=== PATIENT | female | born 1980 | race Caucasian/White ===

== ENCOUNTER 2017-01-06 08:00 | Inpatient (IN) | payer OTHER ==
[2017-01-06 08:50] VITALS: BMI 32.5
[2017-01-06] MEDS ORDERED: CITRIC ACID/SODIUM CITRATE 30 ML UNIT-DOSE CUP PO ONE (09:00)
[2017-01-06] MEDS ORDERED: ELECTROLYTE-148 SOLN 1,000 ML IV ONE (09:00)
[2017-01-06] MEDS ORDERED: morphine SULFATE/Preservative Free 0.5 MG/ML (1cc Syringe) SPIN ONE (09:14)
--- NOTE | 2017-01-06 09:16 | HP ---
Past Medical History - Admission Chief Complaint: scheduled CD History of Present Illness: 36 yo @ 39 2/7 wks by LMP consistent with first trimester ultrasound, EDC 01/11/2017 complicated by: 1. Factor V Leiden heterozygous mutation - denies family history or personal history of VTE - plan for lovenox 40 mg subQ q daily 8-12 H after delivery and to continue 6 wks 2. Prior CD 3. Prior delivery at 36 wks for HELLP syndrome No signs of PEC/HELLP this Patient presents for scheduled CD. She denies any contractions, leakage of fluid or vaginal bleeding, she reports movement Limitations to Obtaining History: No Limitations - Past Medical History Cardiovascular: No: HTN Pulmonary: No: Asthma ...: 4 ...Para: 1 ...Term: 0 ...: 1 ...Spon : 2 ...Induced : 0 ...Multiple Gestation: 0 ...LMP: 04/03/16 ... Weeks Gestation by Dates: 39.5 ...EDC by Dates: 01/08/17 ...EDC by Sono: 01/11/17 Heme/Onc: No: Anemia - Past Surgical History Past Surgical History: Yes: Hx Myomectomy: No Hx Transabdominal Cerclage: No - Smoking History Smoking history: Never smoked Have you smoked in the past 12 months: No - Alcohol/Substance Use Hx Alcohol Use: No - Social History History of Recent Travel: No Home Medications - Allergies Allergies/Adverse Reactions: Allergies Allergy/AdvReac Type Severity Reaction Status Date / Time No Known Drug Allergies Allergy Verified 01/06/17 09:57 - Home Medications Home Medications: Ambulatory Orders Pnv95/Iron Fum/Folic Acid [ Caplet] 1 each PO DAILY 01/14/16 Family Disease History - Family Disease History Family History: Denies Review of Systems - Review of Systems Constitutional: reports: No Symptoms Neck: reports: No Symptoms Cardiovascular: reports: No Symptoms Respiratory: reports: No Symptoms Genitourinary: reports: No Symptoms Musculoskeletal: reports: No Symptoms Integumentary: reports: No Symptoms Neurological: reports: No Symptoms Endocrine: reports: No Symptoms Hematology/Lymphatic: reports: No Symptoms Physical Exam - Maternity Vital Signs: Vital Signs Temperature 98.1 F 01/06/17 08:00 Pulse Rate 91 H 01/06/17 08:00 Respiratory Rate 20 01/06/17 08:00 Blood Pressure 130/69 01/06/17 08:00 O2 Sat by Pulse Oximetry (%) Constitutional: Yes: Well Nourished, No Distress, Calm Neck: Yes: Supple Cardiovascular: Yes: Regular Rate and Rhythm Lungs: Clear to auscultation - Abdominal Exam/OB Fundal Height: 40 Number of Fetuses: Single Contractions: No Heart Rate (range): 130 Category: I Accelerations: Non-Uniform Decelerations: None - Physical Exam Edema: No Psychiatric: Yes: Alert, Oriented - Labs Lab Results: PNL - A positive, antibody negative, RPR NR, HBS Ag negative, Rubella negative, GBS negative, HIV negative Hemorrhage Risk Assessment - Risk Factors Medium Risk Factors: Yes: Prior , uterine surgery,or multiple laparotomies High Risk Factors: Yes: Known coagulopathy Risk Score: 3 Risk Level: High Risk Assessment/Plan 36 yo for repeat delivery 1. Admit to L&D 2. Consents reviewed and signed Discussed risks including but not limited to infection, bleeding requiring transfusion and damage to surrounding organs such as the bowel or bladder. Discussed risk of injury to . Discussed risk of wound infection and separation. Discussed need for planning of future children and possibility of abnormal placentation. 3. Ancef traffic control technician to OR 4. Known MTHFR heterozygous mutation. Plan for lovenox 8-12 wks and to continue for 6 weeks 5. Will proceed to OR
[2017-01-06] MEDS: ELECTROLYTE-148 SOLN 1,000 ML IV SCH (09:41)
[2017-01-06] MEDS ORDERED: TUBERCULIN PPD 5 TU/0.1ML SYRINGE (IN PATIENT USE ONLY) ID ONE (10:00)
[2017-01-06] MEDS ORDERED: ONDANSETRON 4 MG/2 ML VIAL IVPB PRN (10:04)
--- NOTE | 2017-01-06 10:28 | PN ---
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
[2017-01-06] MEDS ORDERED: METHYLERGONOVINE MALEATE 0.2 MG/1 ML AMP IM PRN (10:29)
[2017-01-06] MEDS ORDERED: IBUPROFEN 600 MG TABLET (FP) PO PRN (10:29)
[2017-01-06] MEDS ORDERED: oxyCODONE HCL 5 MG TABLET PO PRN ×2 (10:29)
[2017-01-06] MEDS ORDERED: IBUPROFEN 800 MG/8 ML IJ IVPB PRN (10:29)
[2017-01-06] MEDS: OXYTOCIN 20 UNITS in 0.9% NS 1,000 ML IV SCH (10:58)
--- NOTE | 2017-01-07 01:04 | PN ---
Post Progress Note - Subjective Subjective: Patient without acute complaints. Reports tolerating oral intake without nausea or vomiting. Ambulating without dizziness. Denies fevers or chills. Pain well controlled with oral pain medication. without difficulty. Passing flatus, voiding. Post Day: 1 Type of Delivery: Repeat C/S Vital Signs: Vital Signs Temperature 98.6 F 01/06/17 21:40 Pulse Rate 79 01/06/17 21:40 Respiratory Rate 20 01/06/17 21:40 Blood Pressure 116/66 01/06/17 21:40 O2 Sat by Pulse Oximetry (%) 100 01/06/17 11:14 Breast Exam: Yes: Engorged Uterus: Yes: Fundus Firm Incision: Yes: Dressing dry and intact Abdomen/GI: Yes: Abdomen soft, Tender (incisional) Lochia: Yes: Serosa Lochia, amount: Small Extremities: Yes: Edema Activity: Ambulating Assessment/Plan 36 yo s/p repeat CD, afebrile, vital signs stable, doing well 1. Continue routine postoperative care. 2. CBC stable. 3. Rh positive status, no rhogam indicated. 4. Encourage ambulation and incentive spirometer use 5. Continue oral pain medication 6. Anticipate discharge home postoperative day #3 or #4
[2017-01-07] MEDS: IBUPROFEN 600 MG TABLET (FP) PO PRN ×4 (02:46→21:10)
[2017-01-07] MEDS: ACETAMINOPHEN 325 MG TABLET (FP) PO PRN ×4 (02:46→21:10)
--- NOTE | 2017-01-07 08:08 | OP ---
DATE OF OPERATION: 01/06/2017 ATTENDING PHYSICIAN RESPONSIBLE FOR SIGNING REPORT: Bettina Farmer MD PREOPERATIVE DIAGNOSIS: Intrauterine at 39 weeks, prior delivery, for repeat. POSTOPERATIVE DIAGNOSIS: Intrauterine at 39 weeks, prior delivery, for repeat. SURGEON: Bettina Farmer MD ASSIST: Sergei Hernandez MD ANESTHESIA: Spinal with Rik Garcia MD. ESTIMATED BLOOD LOSS: 600 URINE OUTPUT: 100 INTRAVENOUS FLUIDS: 1000 FINDINGS: Female infant, ROT position, Apgars 9 and 9, weight 7 pounds 13 ounces, 19 inches. Normal tubes and ovaries bilaterally. INDICATIONS: Patient is a 36-year-old 4, para 1 with prior at 36 weeks for HELLP syndrome, for repeat without any symptoms or signs of HELLP syndrome or preeclampsia. She was counseled regarding risks, benefits, alternatives, and complications of procedure including infection; bleeding; damage to surrounding organs such as bowel, bladder, ureters; and injury to . She expressed understanding, was brought to the operating room. DESCRIPTION OF PROCEDURE: When anesthesia was found to be adequate, patient was prepped and draped in the normal sterile fashion, placed in dorsal supine position with a leftward tilt. An approximately 11-cm skin incision was made along the previous uterine scar and carried down to the underlying rectus muscle using the Bovie electrocautery. The fascia was nicked in the midline, extended laterally using Bovie electrocautery. The inferior portion of the incision was tented up using Maribel clamps and the fascia was dissected off the underlying rectus muscle using Hines clamps. Attention was brought to the superior portion where, in a similar fashion, was tented up using Maribel clamps and dissected off the underlying rectus muscles using Hines scissors. The rectus muscles were in the midline. The peritoneum was entered sharply, and the peritoneal incision was extended superoinferiorly using the Metzenbaum scissors. Vesicouterine peritoneum was identified, entered sharply. Bladder flap was created digitally. The hysterotomy was performed and extended laterally using bandage scissors. Infant 's head was brought to the hysterotomy site, followed by shoulders and body without difficulty. The infant's cord was clamped and cut. Infant was handed to waiting nursery staff. Placenta was removed, and the uterus was cleared of all clot and debris. The uterus closed using 0 Biosyn with a double layer. Second layer was an imbricated layer. Vesicouterine peritoneum was reapproximated using 0 Biosyn in a running fashion. The peritoneum was closed using 2-0 Biosyn in running fashion. The fascia was closed using 0 Vicryl in a running fashion. The skin was reapproximated using 3-0 Vicryl. Patient tolerated the procedure well. Estimated blood loss was 600 mL. Patient was brought to recovery room in stable condition. Kimberlyn [id number] MTDD
[2017-01-07 08:16] LABS: BASOPHIL 0.4 % (0-2.0); EOSINOPHIL 1.1 % (0-4.5); MCH 24.5 pg (25.7-33.7); MCHC 31.7 g/dl (32.0-36.0); MEAN CELL VOLUME 77.3 fl (80-96); MEAN PLT VOLUME 8.7 fl (7.5-11.1); NEUTROPHILS 76.6 % (42.8-82.8); PLATELET COUNT 184 K/MM3 (134-434); RDW 15.3 % (11.6-15.6); WHITE BLOOD COUNT 11.2 K/mm3 (4.0-10.0)
[2017-01-07] MEDS: ENOXAPARIN NA (PORCINE) 40 MG/0.4 ML DISP.SYRIN SQ SCH (10:15)
[2017-01-07] MEDS: SIMETHICONE 80 MG TAB.CHEW (FP) PO PRN (10:19)
[2017-01-07] MEDS ORDERED: BISACODYL 10 MG SUPP.RECT RC PRN (10:29)
--- NOTE | 2017-01-07 10:54 | PN ---
Progress Note (short form) - Note Progress Note: Post op day#1.S/P C section under spinal anesthesia with duramorph uneventful.Patient stable ane c/o pain score of 2-3/10 for which she is on medication.No any anesthesia related problem.Patient DC from the anesthesia care.
[2017-01-07] MEDS: ELECTROLYTE-148 SOLN 1,000 ML IV SCH (11:21)
[2017-01-07] MEDS: OXYTOCIN 20 UNITS in 0.9% NS 1,000 ML IV SCH (11:22)
[2017-01-07] MEDS ORDERED: ENOXAPARIN NA (PORCINE) 40 MG/0.4 ML DISP.SYRIN SQ SCH (22:00)
[2017-01-08] MEDS: SIMETHICONE 80 MG TAB.CHEW (FP) PO PRN (01:27)
[2017-01-08] MEDS: ACETAMINOPHEN 325 MG TABLET (FP) PO PRN ×3 (01:28→10:30)
[2017-01-08] MEDS: IBUPROFEN 600 MG TABLET (FP) PO PRN ×3 (01:28→10:29)
--- NOTE | 2017-01-08 08:04 | PN ---
Progress Note (short form) - Note Progress Note: pod 2 doing well, no c/o requesting to go home today, no calf pain ,no SOB, passing gas , tolerating diet CBC, BMP 01/07/17 07:25 Last Vital Signs Temp Pulse Resp BP Pulse Ox 97.7 F 87 18 127/86 100 01/07/17 22:00 01/07/17 22:00 01/07/17 22:00 01/07/17 22:00 01/06/17 11:14 abdomen soft, no distension, no cva, BS present incision dry, clean lochia mild no calf tenderness plan d/c home. on lovnox ambulate follow up office 1 week
--- NOTE | 2017-01-08 08:06 | DS ---
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 Vital Signs: Vital Signs Temperature 97.7 F 01/07/17 22:00 Pulse Rate 87 01/07/17 22:00 Respiratory Rate 18 01/07/17 22:00 Blood Pressure 127/86 01/07/17 22:00 O2 Sat by Pulse Oximetry (%) 100 01/06/17 11:14 Constitutional: Yes: Well Nourished, No Distress, Calm Eyes: Yes: WNL, Conjunctiva Clear, EOM Intact HENT: Yes: WNL, Atraumatic, Normocephalic Neck: Yes: WNL, Supple, Trachea Midline Cardiovascular: Yes: WNL, Regular Rate and Rhythm Respiratory: Yes: WNL, Regular, CTA Bilaterally Gastrointestinal: Yes: WNL ...Rectal Exam: Yes: WNL Renal/: Yes: WNL ....Post : Yes: Uterus firm, Uterus non-tender, Slight lochia rubra Breast(s): Yes: WNL Musculoskeletal: Yes: WNL Extremities: Yes: WNL Edema: No Integumentary: Yes: WNL Wound/Incision: Yes: Clean/Dry, Well Approximated, Sutures Intact Neurological: Yes: WNL, Alert, Oriented ...Motor Strength: WNL Psychiatric: Yes: WNL, Alert, Oriented Labs: CBC, BMP 01/07/17 07:25 Delivery - Delivery Section: Repeat Type of Anesthesia: Spinal EBL (cc): 600 Delivery, Single - Stages of Labor Date of Delivery: 01/06/17 Time of Delivery: 09:32 Time Placenta Delivered: 09:33 Placenta: Yes: Expressed - 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 of Metal Precision 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 Present: Yes Name: Mouna Felton Infant Gender: Female Weight: 7 lb 13 oz Position: Right, OT Total Hours ROM (Hrs/Mins): 2 MINUTES - 1 Minute Total Score: 9 5 Minutes Total Score: 9 - [place] Feeding Plan Initial Plan: Exclusive throughout hospitalization Discharge Summary Reason For Visit: REPEAT C SECTION Current Active Problems delivery delivered (Acute) Factor V Leiden mutation (Acute) Procedures: Principal: repeat LST c/s Condition: Good - Instructions Diet, Activity, Other Instructions: regular diet, follow up office 1 week Referrals: Sergei Hernandez MD [Staff Physician] - Disposition: HOME - Home Medications Comprehensive Discharge Medication List: Ambulatory Orders Pnv95/Iron Fum/Folic Acid [ Caplet] 1 each PO DAILY 01/14/16 Enoxaparin [Lovenox -] 40 mg SQ DAILY #80 syringe 01/06/17 Ibuprofen [Motrin -] 600 mg PO QID #28 tablet 01/07/17
[2017-01-08] MEDS ORDERED: PRENATAL VITAMINS W/ FOLIC ACID TABLET (FP) PO SCH (10:00)
[2017-01-08 10:18] VITALS: BP 129/81; PULSE 73; TEMP 97.4
[2017-01-08] MEDS: ENOXAPARIN NA (PORCINE) 40 MG/0.4 ML DISP.SYRIN SQ SCH (10:29)
--- NOTE | 2017-01-11 15:04 | PATH ---
Surgical Pathology Report Patient Name: MIKAL MCNALLY Med. Rec. 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 Electronically Signed Jose M Mckoy M.D. Gross Description The specimen is received fresh, labeled "placenta" and is a 511 gram, 23.0 x 21.0 x 1.6 cm placenta with attached membranes and umbilical cord. The attached membranes are bocanegra, translucent with focal opacities and insert marginally. The umbilical cord measures 39 cm in length and averages 0.9 cm in diameter. The cord inserts eccentrically, 5.5 cm. to the nearest margin. No true knots or strictures are identified. Cut surface of the umbilical cord reveals 3 vessels. The surface is west-blue with fibrin deposition and appropriate caliber vessels. The maternal surface is red-brown with focal defects. Sectioning reveals red-brown, spongy parenchyma. No focal lesions are identified. Resident Caregiver sections are submitted in three cassettes as follows: 1- membrane rolls and umbilical cord; 2-3- full thickness sections of placenta. 01/08/2017 [facility]01/08/2017
== END 2017-01-08 13:45 | disposition home or self-care (01) | DRG 765 ==
LOC: JLDR 08:00 → J3W 11:43
PROVIDERS: ADMIT Obstetrics & Gynecology; ATTEND Obstetrics & Gynecology
PROC: 10D00Z1 Extraction of Products of Conception, Low, Open Approach (ICD-10-PCS; principal; 2017-01-06)
DX: O34.211 Maternal care for low transverse scar from previous cesarean delivery (principal); O99.113 Other diseases of the blood and blood-forming organs and certain disorders involving the immune mechanism complicating pregnancy, third trimester; D68.51 Activated protein C resistance; N85.8 Other specified noninflammatory disorders of uterus; Z3A.39 39 weeks gestation of pregnancy; O09.523 Supervision of elderly multigravida, third trimester; Z37.0 Single live birth
CPT/HCPCS: 36415; 85025; 88307-TC

== ENCOUNTER 2019-04-17 07:00 | Inpatient (IN) | payer OTHER ==
[2019-04-17] MEDS ORDERED: ONDANSETRON 4 MG/2 ML VIAL IVPUSH PRN (07:46)
[2019-04-17] MEDS ORDERED: CITRIC ACID/SODIUM CITRATE 30 ML UNIT-DOSE CUP PO ONE (08:30)
[2019-04-17] MEDS ORDERED: ELECTROLYTE-148 SOLN 1,000 ML IV ONE (08:30)
[2019-04-17] MEDS ORDERED: ELECTROLYTE-148 SOLN 1,000 ML IV SCH ×2 (08:30→09:00)
[2019-04-17 08:40] VITALS: BMI 36.0
[2019-04-17] MEDS ORDERED: ePHEDrine SULFATE 50 MG/1 ML AMPULE ONE (08:48)
[2019-04-17] MEDS ORDERED: morphine SULFATE/PF 0.5 MG/ML (2cc Syringe - QUVA) ONE (08:48)
[2019-04-17] MEDS ORDERED: PROPOFOL 20 ML ONE (08:49)
[2019-04-17] MEDS ORDERED: ELECTROLYTE-148 SOLN 500 ML IV ONE (08:52)
[2019-04-17] MEDS ORDERED: OXYTOCIN 10 UNITS/ML VIAL ONE (08:53)
--- NOTE | 2019-04-17 08:58 | HP ---
Past Medical History - Admission History of Present Illness: 38 yo @ 39 3/7 wks by first trimester ultrasound, EDC 04/21/2019 complicated by: 1. Prior CD x 2 2. HELLP in first , induced at 36 wks Normal BPs this 3. Factor V Leiden - no history of VTE No thromboprophylaxis this 4. AMA - reassuring cell free DNA (10/13/2018) Patient presents for routine schedule delivery. She reports movement, denies leakage of fluid, vaginal bleeding or contractions. History Source: Patient Limitations to Obtaining History: No Limitations - Past Medical History Cardiovascular: No: HTN Pulmonary: No: Asthma ...: 5 ...Para: 2 ...Term: 1 ...: 1 ...Spon : 2 ...Induced : 0 ...LMP: 07/10/18 ... Weeks Gestation by Dates: 40.1 ...EDC by Dates: 04/16/19 Heme/Onc: No: Anemia Additional Medical History: Factor V Leiden - Past Surgical History Past Surgical History: Yes: Hx Myomectomy: No Hx Transabdominal Cerclage: No - Smoking History Smoking history: Never smoked Have you smoked in the past 12 months: No - Alcohol/Substance Use Hx Alcohol Use: No History of Substance Use: reports: None - Social History History of Recent Travel: No Home Medications - Allergies Allergies/Adverse Reactions: Allergies Allergy/AdvReac Type Severity Reaction Status Date / Time No Known Drug Allergies Allergy Verified 01/06/17 09:57 - Home Medications Home Medications: Ambulatory Orders Pnv95/Iron Fum/Folic Acid [ Caplet] 1 each PO DAILY 01/14/16 Family Medical History Family History: Denies Review of Systems - Review of Systems Constitutional: reports: No Symptoms Cardiovascular: reports: No Symptoms Respiratory: reports: No Symptoms Gastrointestinal: reports: No Symptoms Genitourinary: reports: No Symptoms Musculoskeletal: reports: No Symptoms Integumentary: reports: No Symptoms Neurological: reports: No Symptoms Hematology/Lymphatic: reports: No Symptoms Psychiatric: reports: No Symptoms Physical Exam - Maternity Vital Signs: Vital Signs Temperature 98.3 F 04/17/19 08:00 Pulse Rate 80 04/17/19 08:00 Respiratory Rate 20 04/17/19 08:00 Blood Pressure 125/84 10/21/19 08:00 O2 Sat by Pulse Oximetry (%) Constitutional: Yes: Well Nourished, No Distress, Calm Cardiovascular: Yes: Regular Rate and Rhythm Lungs: Clear to auscultation - Abdominal Exam/OB Number of Fetuses: Single Presentation: Vertex Contractions: No Category: I Accelerations: Non-Uniform Decelerations: None - Physical Exam Edema: No Psychiatric: Yes: WNL - Labs Lab Results: PNL: A positive, antibody negative, RPR NR; HIV neg; HBs Ag neg; HCV neg; Hg Ashley AA; GCT WNL; [id number] WNL; GBS neg Hemorrhage Risk Assessment - Risk Factors Medium Risk Factors: Yes: Prior , uterine surgery,or multiple laparotomies High Risk Factors: Yes: None Risk Score: 1 Risk Level: Medium Risk Assessment/Plan 38 yo @ 39 + wks for scheduled repeat delivery. 1. Admit to L&D 2. Consents reviewed and signed 3. Routine labs reviewed 4. GBS negative 5. Plan for lovenox for DVT Prophylaxis 6. Ancef environmental web crawler 7. Will proceed with delivery
[2019-04-17] MEDS ORDERED: ceFAZolin SODIUM 1 GM VIAL ONE (09:07)
[2019-04-17] MEDS ORDERED: WITCH HAZEL 50% (TUCKS) 40 PAD/JAR PAD TP PRN (10:15)
[2019-04-17] MEDS ORDERED: oxyCODONE HCL 5 MG TABLET PO PRN (10:15)
[2019-04-17] MEDS ORDERED: OXYTOCIN 20 UNITS in 0.9% NS 20 UNIT/1,000 ML INFUS.BAG IV SCH (10:15)
[2019-04-17] MEDS ORDERED: BENZOCAINE 28 GM HEMORRHOIDAL OINTMENT TP PRN (10:15)
[2019-04-17] MEDS ORDERED: BENZOCAINE 20% 57 GM BOTTLE TP PRN (10:15)
[2019-04-17] MEDS ORDERED: METHYLERGONOVINE MALEATE 0.2 MG/1 ML AMP IM PRN (10:15)
[2019-04-17] MEDS ORDERED: OXYTOCIN 20 UNITS in 0.9% NS 20 UNIT/1,000 ML INFUS.BAG IV ONE (10:38)
--- NOTE | 2019-04-17 11:10 | PN ---
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
[2019-04-17] MEDS ORDERED: IBUPROFEN 800 MG/8 ML IJ IVPB ONE (12:00)
[2019-04-17] MEDS: IBUPROFEN 800 MG/8 ML IJ IVPB PRN ×2 (12:00→21:48)
--- NOTE | 2019-04-17 15:52 | OP ---
DATE OF OPERATION: 04/17/2019 ATTENDING PHYSICIAN: Tori Farmre MD INDICATIONS: Patient is a 38-year-old 5, para 2, prior section desiring a repeat. She was counseled regarding risks, benefits, alternatives, and complications of procedure including infection, bleeding, damage to surrounding organs, injury to . She expressed understanding and was brought to the operating room. DESCRIPTION OF PROCEDURE: When anesthesia was found to be adequate, patient was prepped and draped in normal sterile fashion. Placed in the dorsal supine position with a leftward tilt. Approximately an 11-cm skin incision was made with a knife and carried down to the underlying rectus fascia using Bovie electrocautery. The fascia was nicked in the midline, extended laterally using Hines scissors. Inferior portion of the fascial incision was tented up using Maribel clamps, dissected off the underlying rectus muscle using Hines scissors. Attention was brought to the superior portion where in a similar fashion was tented up using Maribel clamps and dissected off the underlying rectus muscle using the Hines scissors and the scalpel. The rectus muscles were in the midline sharply, and the peritoneum was entered sharply. Mild adhesions from the omentum to the anterior abdominal wall were noted and taken down. Good hemostasis was noted. The vesicouterine peritoneum was identified, entered sharply, and a bladder flap was created sharply. Hysterotomy was performed, extended superolaterally using the bandage scissors. 's head was found to be in OP position. Infant's head was brought to the hysterotomy site and delivered followed by shoulders and body without difficulty. Cord was clamped and cut. Cord blood was collected and sent. was handed to waiting NICU staff present for delivery. The placenta was manually extracted. The uterus was cleared of all clot and debris. The uterus was closed using 0 Biosyn in running layer, 2nd layer as an imbricated layer. The vesicouterine peritoneum was reapproximated using 0 Vicryl in running fashion. Good hemostasis was noted from the hysterotomy site. Gutters were cleared of all clot and debris. The peritoneum was closed using 2- 0 Biosyn in a running fashion. The muscles were reapproximated using 0 Biosyn in interrupted fashion. The fascia was closed using 0 Vicryl in a running fashion. The subcutaneous fat was closed using 2-0 Biosyn in interrupted fashion, and the skin was approximated using 3-0 Vicryl. The patient tolerated the procedure well. Estimated blood loss was 600 mL. The patient was brought to the recovery room in stable condition. TORI FARMER M.D. [id number] MTDD
[2019-04-18] MEDS: IBUPROFEN 800 MG/8 ML IJ IVPB PRN (05:12)
[2019-04-18] MEDS: ACETAMINOPHEN 325 MG TABLET (FP) PO PRN ×4 (08:09→22:13)
[2019-04-18] MEDS: SIMETHICONE 80 MG TAB.CHEW (FP) PO PRN ×2 (08:10→22:13)
--- NOTE | 2019-04-18 09:02 | PN ---
Post Progress Note - Subjective Subjective: Patient without acute complaints. Reports tolerating oral intake without nausea or vomiting. Ambulating without dizziness. Denies fevers or chills. Pain well controlled with oral pain medication. without difficulty. Post Day: 1 Type of Delivery: Repeat C/S Vital Signs: Vital Signs Temperature 97.8 F 04/18/19 08:00 Pulse Rate 78 04/18/19 08:00 Respiratory Rate 20 04/18/19 06:00 Blood Pressure 134/87 04/18/19 08:00 O2 Sat by Pulse Oximetry (%) 100 04/17/19 11:25 Breast Exam: Yes: Soft Uterus: Yes: Fundus Firm, Fundus below umbilicus Incision: Yes: Dressing dry and intact Abdomen/GI: Yes: Abdomen soft, Passing flatus Lochia: Yes: Rubra Lochia, amount: Small Extremities: Yes: Calves non-tender Perineum: Yes: Intact Activity: Ambulating Assessment/Plan POD # 1 s/p #3 c/section VSS, afebrile Doing well Rh pos no need for RhoGam CBC to be drawn, will follow, no s/s of orthostasis Lovenox for DVT profilaxis Encourage ambulation
[2019-04-18] MEDS ORDERED: BISACODYL 10 MG SUPP.RECT RC PRN (10:16)
[2019-04-18 10:30] LABS: BASO % 0.2 % (0-2.0); EOS % 1.6 % (0-4.5); HEMATOCRIT 34.6 % (32.4-45.2); HEMOGLOBIN 11.1 GM/dL (10.7-15.3); LYMPH % 10.7 % (8-40); MCH 26.1 pg (25.7-33.7); MCHC 32.1 g/dl (32.0-36.0); MEAN CELL VOLUME 81.2 fl (80-96); MONO % 4.7 % (3.8-10.2); NEUT % 82.8 % (42.8-82.8); PLATELET COUNT 211 K/MM3 (134-434); RBC 4.25 M/mm3 (3.60-5.2); RDW 15.3 % (11.6-15.6); WHITE BLOOD COUNT 12.9 K/mm3 (4.0-10.0)
[2019-04-18] MEDS: PRENATAL VITAMINS W/ FOLIC ACID TABLET (FP) PO SCH (10:32)
[2019-04-18] MEDS: ENOXAPARIN NA (PORCINE) 40 MG/0.4 ML DISP.SYRIN SQ SCH (10:47)
--- NOTE | 2019-04-18 10:56 | PN ---
Progress Note (short form) - Note Progress Note: Anesthesia POD#1 S/P under spinal A and DM VSS,no N/V,bearable pain,legs are strong. Bee Wells MD.
[2019-04-18] MEDS: IBUPROFEN 600 MG TABLET (FP) PO PRN ×3 (11:50→22:14)
[2019-04-18 21:12] VITALS: TEMP 97.9
[2019-04-19] MEDS: ACETAMINOPHEN 325 MG TABLET (FP) PO PRN ×2 (03:05→09:10)
[2019-04-19] MEDS: SIMETHICONE 80 MG TAB.CHEW (FP) PO PRN (03:05)
[2019-04-19] MEDS: IBUPROFEN 600 MG TABLET (FP) PO PRN ×2 (03:06→09:09)
--- NOTE | 2019-04-19 09:02 | DS ---
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 Vital Signs: Vital Signs Temperature 97.9 F 04/18/19 21:11 Pulse Rate 89 04/18/19 21:11 Respiratory Rate 18 04/18/19 21:11 Blood Pressure 120/86 04/18/19 21:11 O2 Sat by Pulse Oximetry (%) 100 04/17/19 11:25 Constitutional: Yes: Well Nourished, No Distress, Calm Eyes: Yes: WNL, Conjunctiva Clear, EOM Intact HENT: Yes: WNL, Atraumatic, Normocephalic Neck: Yes: WNL, Supple, Trachea Midline Cardiovascular: Yes: WNL, Regular Rate and Rhythm Respiratory: Yes: WNL, Regular, CTA Bilaterally Gastrointestinal: Yes: WNL, Normal Bowel Sounds, Soft ...Rectal Exam: Yes: Deferred Renal/: Yes: WNL Pelvis: Yes: WNL External Genitalia: Yes: Normal Internal Exam Deferred: Yes ....Post : Yes: Uterus firm, Uterus non-tender, Slight lochia rubra Breast(s): Yes: WNL Musculoskeletal: Yes: WNL Extremities: Yes: WNL Edema: Yes Edema: LLE: Trace, RLE: Trace Integumentary: Yes: WNL Wound/Incision: Yes: Clean/Dry, Well Approximated, Steri Strips, Open to air, Dressing Removed Neurological: Yes: WNL, Alert, Oriented ...Motor Strength: WNL Psychiatric: Yes: WNL, Alert, Oriented Labs: CBC, BMP 04/18/19 09:43 Delivery - Delivery Section: Repeat Type of Anesthesia: Spinal Episiotomy/Laceration: None EBL (cc): 600 Delivery, Single - Stages of Labor Date of Delivery: 04/17/19 Time of Delivery: 09:32 Time Placenta Delivered: 09:33 Placenta: Yes: Manual Removal, Normal Configuration - Condition of Inspector Set Up And Lay Out/Cathode Washer Present: Yes Name: Susan Deras Gender: Female Weight: 3.232 kg Position: OP Total Hours ROM (Hrs/Mins): 2 MIN - 1 Minute Total Score: 8 5 Minutes Total Score: 9 - [place] Feeding Plan Initial Plan: Exclusive throughout hospitalization Benefits of Exclusively reinforced: Yes Discharge Summary Problems reviewed: Yes Reason For Visit: C SECTION Procedures: Principal: Repeat LT C/S Hospital Course: Normal and postop recovery Plan of Treatment: Recovery after surgery Condition: Good - Instructions Diet, Activity, Other Instructions: Physical activity Resume your normal everyday activity as tolerated no heavy lifting or exercise until seen by your surgeon. You may walk unlimited oren of and climb stairs. You may resume driving the car when you feel safe and comfortable behind the wheel. No sexual activity as instructed. Wound care If you have a bandage, leave it on, and keep dry for 48-72 hours. After that time discard the outer bandage. If they are tapes on the skin under the out of bandage leave them in place. They will peel off in the next 7 to 10 days. Do Not Peel them off. You may shower the day after surgery. If there are tapes present on the skin, you may shower over them. Diet There are no dietary restrictions. Eat healthy, high-fiber foods. Drink 6 to 8 glasses of liquid each day. This will assist in keeping your bowels are regular. Pain management You may take Tylenol or acetaminophen or Ibuprofen (for example, Motrin, Advil etc.) from my pain prescription medication is ordered should be taken as prescribed for moderate to severe pain. Call MD for any of the following: Severe pain not relieved by medication Fever of 101 or higher Excessive bleeding or drainage on dressing Inability to urinate Referrals: Bettina Farmer MD [Staff Physician] - Disposition: HOME - Home Medications Comprehensive Discharge Medication List: Ambulatory Orders Pnv95/Iron Fum/Folic Acid [ Caplet] 1 each PO DAILY 01/14/16 Prescription Drug Monitoring Program (I-STOP) results: I-STOP not reviewed
--- NOTE | 2019-04-19 09:06 | PN ---
Post Progress Note - Subjective Subjective: No complaints. Pt wants to go home today. Reports tolerating oral intake without nausea or vomiting. Ambulating without dizziness. Denies fevers or chills. Pain well controlled with oral pain medication. Pumping/breast feeding without issue. Passing flatus, no BM. Post Day: 2 Type of Delivery: Repeat C/S Vital Signs: Vital Signs Temperature 97.9 F 04/18/19 21:11 Pulse Rate 89 04/18/19 21:11 Respiratory Rate 18 04/18/19 21:11 Blood Pressure 120/86 04/18/19 21:11 O2 Sat by Pulse Oximetry (%) 100 04/17/19 11:25 Breast Exam: Yes: Soft Uterus: Yes: Fundus Firm, Fundus below umbilicus, Non-tender Abdomen/GI: Yes: Abdomen soft, Passing flatus, Tolerating PO Lochia: Yes: Rubra Lochia, amount: Small Extremities: Yes: Calves non-tender Perineum: Yes: Intact Activity: Ambulating - Labs Labs: CBC WBC 12.9 K/mm3 (4.0-10.0) H 04/18/19 09:43 RBC 4.25 M/mm3 (3.60-5.2) 04/18/19 09:43 Hgb 11.1 GM/dL (10.7-15.3) 04/18/19 09:43 Hct 34.6 % (32.4-45.2) 04/18/19 09:43 MCV 81.2 fl (80-96) 04/18/19 09:43 MCH 26.1 pg (25.7-33.7) 04/18/19 09:43 MCHC 32.1 g/dl (32.0-36.0) 04/18/19 09:43 RDW 15.3 % (11.6-15.6) 04/18/19 09:43 Plt Count 211 K/MM3 (134-434) 04/18/19 09:43 MPV 9.0 fl (7.5-11.1) 04/18/19 09:43 Absolute Neuts (auto) 10.7 K/mm3 (1.5-8.0) H 04/18/19 09:43 Neutrophils % 82.8 % (42.8-82.8) 04/18/19 09:43 Lymphocytes % 10.7 % (8-40) 04/18/19 09:43 Monocytes % 4.7 % (3.8-10.2) 04/18/19 09:43 Eosinophils % 1.6 % (0-4.5) 04/18/19 09:43 Basophils % 0.2 % (0-2.0) 04/18/19 09:43 Nucleated RBC % 0 % (0-0) 04/18/19 09:43 Assessment/Plan 25yo P2 s/p repeat LT C/S, doing well stable, afebrile. The pt is asymptomatic for s/sxs of anemia. care instructions reviewed. Continue routine postop care. Ambulation encouraged. Discharge instructions reviewed
[2019-04-19] MEDS: PRENATAL VITAMINS W/ FOLIC ACID TABLET (FP) PO SCH (10:12)
[2019-04-19] MEDS: ENOXAPARIN NA (PORCINE) 40 MG/0.4 ML DISP.SYRIN SQ SCH (10:12)
[2019-04-19 15:52] VITALS: BP 122/76; PULSE 79
--- NOTE | 2019-04-24 17:37 | PATH ---
Surgical Pathology Report Patient Name: MIKAL MCNALLY Med. Rec. #: [id number] /Age/Gender: 1980 (Age: 38) / F Account: [id number] Location: [facility] [employer] Taken: 04/17/2019 Received: 04/18/2019 Reported: 04/24/2019 Physicians: Bettina Farmer Specimen(s) Received PLACENTA Clinical History x2, 09/09, 08/14 Final Diagnosis PLACENTA, SECTION: 495 G THIRD TRIMESTER PLACENTA WITH TRIVASCULAR UMBILICAL CORD AND UNREMARKABLE PLACENTAL MEMBRANES. Electronically Signed Tracee Mary M.D. Gross Description The specimen is received fresh labeled placenta and is a 495 gram, 20.0 x 16.0 x 1.8 cm. placenta with attached membranes and umbilical cord. The attached membranes are bocanegra, translucent with focal opacities and insert marginally. The umbilical cord measures 32 cm. in length and averages 1.2 cm. in diameter. The cord inserts eccentrically, 4.5 cm. to the nearest margin. No true knots or strictures are identified. Cut surface of the umbilical cord reveals 3 vessels. The surface is west-blue with minimal fibrin deposition and appropriate caliber vessels. The maternal surface is red-brown with focal defects. Sectioning reveals red-brown, spongy parenchyma. No lesions are identified. 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 04/20/2019 saudi04/20/2019
== END 2019-04-19 12:10 | disposition home or self-care (01) | DRG 788 ==
LOC: JLDR 07:00 → J3W 12:45
PROVIDERS: ADMIT Obstetrics & Gynecology; ATTEND Obstetrics & Gynecology
PROC: 10D00Z1 Extraction of Products of Conception, Low, Open Approach (ICD-10-PCS; principal; 2019-04-17)
DX: O34.211 Maternal care for low transverse scar from previous cesarean delivery (principal); O99.02 Anemia complicating childbirth; D64.9 Anemia, unspecified; Z3A.39 39 weeks gestation of pregnancy; Z37.0 Single live birth
CPT/HCPCS: 36415; 85025; 88307-TC